=== PATIENT | female | born 1970 | race Caucasian/White ===

== ENCOUNTER → 2020-09-22 02:27 | Outpatient (CLI) | payer BC, SELFPAY ==
[2020-09-22 20:23] LABS: SARS-CoV-2 RNA PCR Negative
== END ==
PROVIDERS: PCP Nurse Practitioner; Visit Provider Internal Medicine Gastroenterology
DX: Z01.812 Encounter for preprocedural laboratory examination (principal); Z20.822 Contact with and (suspected) exposure to COVID-19
CPT/HCPCS: C9803; U0003; U0005

== ENCOUNTER 2020-09-26 00:59 | Day surgery (SDC) | payer BC, SELFPAY ==
[2020-09-26 09:36] VITALS: BP 108/56; PULSE 60; RESP 18; TEMP 37.2; O2SAT 100
--- NOTE | 2020-09-26 09:38 | PM.HPGS ---
History of Present Illness History of Present Illness Consent: Risks, benefits, and alternatives have been discussed and questions answered. Patient agrees to proceed with procedure. Chief complaint: constipation, GERD Narrative: Virginie Marie is a 49 year old female with a history of Mejia's esophagus. She also has had a change in bowel habits. Lately she has been very constipated and most of the things she has tried are not effective. Review of Systems Review of Systems: All systems reviewed & are unremarkable except as noted in HPI and below PMFSH Past Medical History Medical History GERD (gastroesophageal reflux disease) Iron deficiency anemia, unspecified Irritable bowel syndrome Major depressive disorder, recurrent, unspecified Narcolepsy and cataplexy Family History Family History Father Family history of thyroid disease Family history of hypercholesterolemia Mother Family history of mental disorder Depression Hypertension Family history of malignant neoplasm of breast in first degree relative Social History Social History Smoking status: Never smoker Alcohol intake: never Substance use type: does not use Spiritual care concerns: No Meds Home Medications and Allergies Home Medications Medication Instructions Recorded Confirmed Type armodafinil 200 mg tablet 200 mg PO QAM 02/22/20 09/26/20 History pantoprazole 20 mg tablet,delayed 40 mg PO BID 02/22/20 09/26/20 History release sennosides 8.6 mg capsule 8.6 mg PO DAILY 02/22/20 09/26/20 History sodium oxybate 500 mg/mL oral 9 gm PO BID ml 02/22/20 09/26/20 History solution famotidine 20 mg tablet 20 mg PO DAILY #90 tablet 02/24/20 09/26/20 Rx bupropion HCl 300 mg 24 hr tablet, See Rx Instructions .ROUTE 07/09/20 09/26/20 Rx extended release .COMPLEX #90 tablet calcium carbonate 400 mg calcium 400 mg PO DAILY PRN 07/30/20 09/26/20 History (1,000 mg) chewable tablet lubiprostone [Amitiza] 48 mcg PO DAILY 09/13/20 09/26/20 History pitolisant [Wakix] 35.6 mg PO DAILY 09/13/20 09/26/20 History Allergies Allergy/AdvReac Type Severity Reaction Status Date / Time No Known Allergies Allergy Verified 09/26/20 09:26 Vital Signs Vital Signs - 24 hr 09/26/20 09:36 Temperature 37.2 C Pulse Rate 60 Respiratory Rate 18 Blood Pressure 108/56 L Pulse Oximetry 100 Exam Const: General: alert Orientation/consciousness: patient oriented x3 Resp: Auscultation: clear to auscultation bilaterally Cardio: Rhythm: regular rhythm GI: GI Palp: Yes Soft to palpation and No Tenderness to palpation present (GI) Neuro: General: patient oriented x3 Assessment and Plan Assessment and plan (1) GERD (gastroesophageal reflux disease): Qualifiers: Esophagitis presence: esophagitis presence not specified Qualified Code(s): K21.9 - Gastro-esophageal reflux disease without esophagitis Code(s): K21.9 - Gastro-esophageal reflux disease without esophagitis Status: Chronic Assessment and Plan: EGD with possible biopsy or dilatation or cautery. (2) Change in bowel habits: Code(s): R19.4 - Change in bowel habit Status: Acute Assessment and Plan: Colonoscopy with possible biopsy or polypectomy or cautery or injection of substances.
[2020-09-26] MEDS: LACTATED RINGERS 1,000 ML 150 ML IV CONT (09:48)
--- NOTE | 2020-09-26 10:09 | WPDANESEPPF ---
Anes - Initial Pre Proc Eval Procedure: Operation Date: 09/26/20 10:30 Proposed Procedures p Esophagogastroduodenoscopy & Colonoscopy - Santiago Gee MD Date/Time: 09/26/20 10:09 Surgeon: Santiago Gee MD Pre Op Diagnosis: constipation, GERD Patient Data Age: 49 Gender: F Height: 5 ft 7 in Weight: 58.2 kg Last Vital Signs Temp 98.9 F 09/26/20 09:36 Pulse 60 09/26/20 09:36 Resp 18 09/26/20 09:36 BP 108/56 L 09/26/20 09:36 Pulse Ox 100 09/26/20 09:36 Allergies Allergy/AdvReac Type Severity Reaction Status Date / Time No Known Allergies Allergy Verified 09/26/20 09:26 Home Medications Medication Instructions Recorded Confirmed Type armodafinil 200 mg tablet 200 mg PO QAM 02/22/20 09/26/20 History pantoprazole 20 mg tablet,delayed 40 mg PO BID 02/22/20 09/26/20 History release sennosides 8.6 mg capsule 8.6 mg PO DAILY 02/22/20 09/26/20 History sodium oxybate 500 mg/mL oral 9 gm PO BID ml 02/22/20 09/26/20 History solution famotidine 20 mg tablet 20 mg PO DAILY #90 tablet 02/24/20 09/26/20 Rx bupropion HCl 300 mg 24 hr tablet, See Rx Instructions .ROUTE 07/09/20 09/26/20 Rx extended release .COMPLEX #90 tablet calcium carbonate 400 mg calcium 400 mg PO DAILY PRN 07/30/20 09/26/20 History (1,000 mg) chewable tablet lubiprostone [Amitiza] 48 mcg PO DAILY 09/13/20 09/26/20 History pitolisant [Wakix] 35.6 mg PO DAILY 09/13/20 09/26/20 History Patient hx anesthesia problems: none Family hx anesthesia problems: none PMFSH Past Medical History Medical History GERD (gastroesophageal reflux disease) Iron deficiency anemia, unspecified Irritable bowel syndrome Major depressive disorder, recurrent, unspecified Narcolepsy and cataplexy Family History Family History Father Family history of thyroid disease Family history of hypercholesterolemia Mother Family history of mental disorder Depression Hypertension Family history of malignant neoplasm of breast in first degree relative Social History Social History Smoking status: Never smoker Alcohol intake: never Substance use type: does not use Spiritual care concerns: No Anes - Eval Final PreProcedure Day of Procedure 09/26/20 10:09 Patient weight: normal Heart: regular rate and rhythm Lungs: clear to auscultation Airway: Mallampati scale Last oral intake: >/= 8 hours ASA classification: II Emergent: no Anesthetic plan: proceed Anesthesia type and monitoring: general GIVS and standard monitoring Informed Consent: The patient's anesthetic plan and its attendant risks and benefits were discussed with the patient/family/POA. Questions were solicited and answers provided to the satisfaction of the patient/family/POA.
[2020-09-26] MEDS: BENZOCAINE (*SP) 60 ML SPRAY CAN (HURRICAINE) 1 SPRAY MUCOUS MEM (10:22)
[2020-09-26 10:58] VITALS: BP 99/49; PULSE 66; RESP 14; O2SAT 100
[2020-09-26 11:08] VITALS: BP 102/62; PULSE 64; RESP 20; O2SAT 100
[2020-09-26 11:18] VITALS: BP 109/58; PULSE 63; RESP 16; O2SAT 100
[2020-09-26] MEDS: ACETAMINOPHEN 325 MG TABLET 650 MG PO (11:30)
--- NOTE | 2020-09-26 11:40 | SUR.PHASEII ---
Pt left eye red and tearful post-operatively. Pt states contact were not in during procedure.Dr. Alcantara anesthesia notified. New orders recieved for eye drops.
[2020-09-26] MEDS: PROPARACAINE HCL 0.5% 15 ML OPHTH SOLN 1 DROP EACH EYE (11:56)
[2020-09-26] MEDS: DICLOFENAC SODIUM 0.1% OPHTH SOLN 2.5 ML BOTTLE 1 DROP EACH EYE (12:01)
== END 2020-09-26 12:05 | disposition home or self-care (01) ==
PROVIDERS: PCP Nurse Practitioner; Visit Provider Internal Medicine Gastroenterology
PROC: 0DJ08ZZ Inspection of Upper Intestinal Tract, Via Natural or Artificial Opening Endoscopic (ICD-10-PCS; CPT 43235; principal; 2020-09-26 10:30)
DX: K59.00 Constipation, unspecified (principal); K21.9 Gastro-esophageal reflux disease without esophagitis; K44.9 Diaphragmatic hernia without obstruction or gangrene; G47.411 Narcolepsy with cataplexy; F33.9 Major depressive disorder, recurrent, unspecified; K58.9 Irritable bowel syndrome, unspecified
CPT/HCPCS: 45378; 43239; 88305; A9270; C9803; J2704; J7120; U0003; U0005

== ENCOUNTER 2021-02-02 11:38 | Emergency (ER) | payer BC, SELFPAY ==
--- NOTE | ~2021-02-02 | XR_ITS ---
XR finger 3rd RT min 2V 02/02/2021 13:08 Indication: Right third finger pain after blunt trauma Procedure: 4 views right third finger Comparison: No prior studies for comparison. Findings: There is anatomic alignment. No fracture, subluxation or dislocation. No significant soft t issue abnormality. No foreign bodies. Impression: 1: No acute bone or joint abnormality. Reviewed, dictated and finalized at location A. Impression: 1: No acute bone or joint abnormality.
[2021-02-02 11:40] VITALS: BP 109/69; PULSE 79; RESP 20; TEMP 36.8; O2SAT 98
--- NOTE | 2021-02-02 12:55 | ED.WOUNDLAC ---
HPI - Wound/Laceration General Chief Complaint: Wound/Laceration Stated Complaint: CUT R 3RD FINGER Time Seen by Provider: 02/02/21 12:36 Source: patient Mode of arrival: ambulatory Limitations: no limitations History of Present Illness HPI narrative: 50-year-old female She was getting ready to power wash and smashed her right middle fingertip in the garage door She has a distally based superficial avulsion to the pad of that finger which she thoroughly irrigated and cleaned and has been icing No numbness and she is able to flex and extend her DIP and there is no issue with the nail Related Data Home Medications Medication Instructions Recorded Confirmed armodafinil 200 mg tablet 200 mg PO QAM 02/22/20 01/31/21 pantoprazole 20 mg tablet,delayed 40 mg PO BID 02/22/20 01/31/21 release sodium oxybate 500 mg/mL oral 9 gm PO BID ml 02/22/20 01/31/21 solution calcium carbonate 400 mg calcium 400 mg PO DAILY PRN 07/30/20 01/31/21 (1,000 mg) chewable tablet Wakix 35.6 mg PO DAILY 09/13/20 01/31/21 cholecalciferol (vitamin D3) 50 50 mcg PO DAILY 01/31/21 01/31/21 mcg (2,000 unit) capsule lactobacillus combination no.4 3 3,000 mmu cells PO DAILY 01/31/21 01/31/21 billion cell capsule prucalopride 2 mg tablet 2 mg PO DAILY 01/31/21 01/31/21 Allergies Allergy/AdvReac Type Severity Reaction Status Date / Time No Known Allergies Allergy Verified 02/02/21 11:43 Review of Systems Musculoskeletal: Musculoskeletal: Reports arthralgias Neurologic: Denies focal weakness and Denies numbness PMFSH Past Medical History Medical History GERD (gastroesophageal reflux disease) Iron deficiency anemia, unspecified Irritable bowel syndrome Major depressive disorder, recurrent, unspecified Narcolepsy and cataplexy Family History Family History Father Family history of thyroid disease Family history of hypercholesterolemia Mother Family history of mental disorder Depression Hypertension Family history of malignant neoplasm of breast in first degree relative Social History Social History Smoking status: Never smoker Alcohol intake: never Substance use type: does not use Gender identity (if verbalized by the patient): Female Spiritual care concerns: No Exam Const: General: cooperative, no acute distress and alert Orientation/consciousness: patient oriented x3 (alert) HENMT: Head: normocephalic and atraumatic Eyes: Conjunctivae: conjunctivae normal EOM: EOMs intact bilaterally Neck: Neck: supple and no JVD Resp: Effort & Inspection: normal respiratory effort and not labored Auscultation: other (BS =) Skin: General skin exam: normal color and no rashes or lesions noted Neuro: General: patient oriented x3 (alert) Speech: normal speech Extrem: Other: There is a superficial proximally based avulsion to the pad of the right third finger which is well opposed and the proximal edge does not look very dusky at all at this time Mildly swollen Normal range of motion of the DIP Psych: Affect: normal affect Course Vital Signs Vital signs: Vital Signs Temperature 36.8 C 02/02/21 11:40 Pulse Rate 79 02/02/21 11:40 Respiratory Rate 20 02/02/21 11:40 Blood Pressure 109/69 02/02/21 11:40 Pulse Oximetry 98 02/02/21 11:40 Temperature 36.8 C 02/02/21 11:40 Pulse Rate 79 02/02/21 11:40 Respiratory Rate 20 02/02/21 11:40 Blood Pressure 109/69 02/02/21 11:40 Pulse Oximetry 98 02/02/21 11:40 MDM - Wound/Laceration Imaging Data Radiologist's impression: ITS Impressions Finger X-Ray 02/02/21 13:10 Impression: 1: No acute bone or joint abnormality. Discharge Plan Discharge Clinical Impression: Fingertip avulsion Patient Disposition: Home, Self-Care Condition:
[2021-02-02] MEDS: TETANUS,DIPHTHERIA,AC PERTUSSIS ADULT (0.5 ML) BOOSTRIX IM (13:06)
== END 2021-02-02 13:43 | disposition home or self-care (01) ==
PROVIDERS: Emergency Provider Emergency Medicine; PCP Nurse Practitioner
DX: S61.202A Unspecified open wound of right middle finger without damage to nail, initial encounter (principal); K21.9 Gastro-esophageal reflux disease without esophagitis; D50.9 Iron deficiency anemia, unspecified; K58.9 Irritable bowel syndrome, unspecified; Z23 Encounter for immunization; W23.0XXA Caught, crushed, jammed, or pinched between moving objects, initial encounter
CPT/HCPCS: 73140; 90471; 90715; 99283

== ENCOUNTER 2021-04-18 11:52 | Outpatient (CLI) | payer BC, SELFPAY ==
[2021-04-18 13:19] LABS: Basophils Absolute Auto 0.1 K/mm3 (0.0-0.1); Basophils Percent Auto 1.8 % (0.2-1.2); Eosinophils Percent Auto 1.4 % (0-4.4); Hematocrit 38.5 % (37.0-47.0); Hemoglobin 12.6 g/dL (12.0-15.0); Immature Granulocyte Absolute 0.01 K/mm3 (0.00-0.031); Immature Granulocyte Percent A 0.4 % (0-0.5); Lymphocytes Absolute Auto 0.93 K/mm3 (0.9-3.2); Lymphocytes Percent Auto 33.6 % (18.3-44.2); Mean Corpuscular HGB Conc 32.7 g/dl (32-36); Mean Corpuscular Hemoglobin 29.6 pg (26-34); Mean Corpuscular Volume 90.4 fl (80-100); Mean Platelet Volume 9.6 fl (7.4-10.4); Monocytes Absolute Auto 0.3 K/mm3 (0.1-0.6); Monocytes Percent Auto 10.1 % (2.6-8.5); Neutrophils Absolute Auto 1.5 K/mm3 (1.3-6.7); Neutrophils Percent Auto 52.7 % (45.5-73.1); Platelet Count Result 233 k/mm3 (150-375); Red Blood Count 4.26 M/mm3 (4.2-5.4); Red Cell Distribution Width 13.6 % (11.5-14.5); White Blood Count 2.8 K/mm3 (4.5-10.0)
[2021-04-18 13:29] LABS: Alanine Aminotransferase 37 U/L (4-35); Alkaline Phosphatase 48 U/L (38-126); Anion Gap 9 mmol/L (8-16); Aspartate Amino Transferase 31 U/L (14-36); Bilirubin,Total 0.4 mg/dL (0.2-1.3); Blood Urea Nitrogen 16 mg/dL (7-17); Calcium 9.8 mg/dL (8.4-10.2); Carbon Dioxide 33 mmol/L (22-30); Chloride 99 mmol/L (98-107); Estimated Glomerular Filt Rate > 60; Glucose 87 mg/dL (65-110); Potassium 4.5 mmol/L (3.4-5.0); Sodium 141 mmol/L (137-145)
[2021-04-18 13:32] LABS: INR 0.9; Prothrombin Time 12.2 Seconds (11.1-14.7)
[2021-04-18 13:33] LABS: Partial Thromboplastin Time 25.5 SECONDS (22.3-36.8)
== END 2021-04-18 11:53 | disposition home or self-care (01) ==
PROVIDERS: PCP Nurse Practitioner; Visit Provider Urology
DX: Z01.818 Encounter for other preprocedural examination (principal); N81.89 Other female genital prolapse
CPT/HCPCS: 36415; 80053; 85025; 85610; 85730; 86850; 86900; 86901; 87086

== ENCOUNTER 2021-04-22 00:36 | Day surgery (SDC) | payer BC, SELFPAY ==
[2021-04-18 12:33] VITALS: BP 120/74; PULSE 74; RESP 18; TEMP 37.4; O2SAT 98; BMI 19.6
--- NOTE | 2021-04-20 09:55 | PM.IMHP ---
H&P: HPI History of Present Illness Date/Time: 04/20/21 09:55 [facility] organ prolpase and MIRIAM Chief Complaint: POP/MIRIAM Review of Systems Review of Systems: All systems reviewed & are unremarkable except as noted in HPI and below [facility] Past Medical History Medical History GERD (gastroesophageal reflux disease) Iron deficiency anemia, unspecified Irritable bowel syndrome Major depressive disorder, recurrent, unspecified Narcolepsy and cataplexy Family History Family History Father Family history of thyroid disease Family history of hypercholesterolemia Mother Family history of mental disorder Depression Hypertension Family history of malignant neoplasm of breast in first degree relative Social History Social History Smoking status: Never smoker Second hand tobacco smoke exposure: No Additional smoking assessment comments: PT DENIES ALL FORMS OF TABACCO USE Alcohol intake: current Alcohol use details: STATES MAYBE 12 DRINKS A YEAR Substance use: never Substance use type: does not use Gender identity (if verbalized by the patient): Female Spiritual care concerns: No Meds Home Medications and Allergies Home Medications Medication Instructions Recorded Confirmed Type armodafinil 200 mg tablet 200 mg PO QAM 02/22/20 04/18/21 History pantoprazole 20 mg tablet,delayed 40 mg PO BID 02/22/20 04/18/21 History release calcium carbonate 400 mg calcium 400 mg PO DAILY PRN 07/30/20 04/18/21 History (1,000 mg) chewable tablet Wakix 35.6 mg PO DAILY 09/13/20 04/18/21 History lactobacillus combination no.4 3 3,000 mmu cells PO DAILY 01/31/21 04/18/21 History billion cell capsule prucalopride 2 mg tablet 2 mg PO DAILY 01/31/21 04/18/21 History bisacodyl [Dulcolax (bisacodyl)] 5 mg PO HS PRN 04/18/21 04/18/21 History bupropion HCl 300 mg QAM 04/18/21 04/18/21 History cholecalciferol (vitamin D3) 125 mcg PO DAILY 04/18/21 04/18/21 History melatonin 5 mg PO HS 04/18/21 04/18/21 History melatonin 10 mg PO HS 04/18/21 04/18/21 History nitroglycerin [Nitro-Bid] See Rx Instructions .ROUTE .COMPLEX 04/18/21 04/18/21 History polyethylene glycol 3350 [Miralax] 34 g PO DAILY 04/18/21 04/18/21 History sodium,calcium,mag,pot oxybate 4.5 g PO HS 04/18/21 04/18/21 History [Xywav] Allergies Allergy/AdvReac Type Severity Reaction Status Date / Time No Known Allergies Allergy Verified 04/18/21 12:19 Exam Const: General: cooperative and healthy appearing HENMT: Head: normal to inspection Eyes: General: appearance normal, both eyes and all related structures Resp: Effort & Inspection: normal respiratory effort and able to speak in complete sentences : Bimanual Exam- Adnexa, other: rectocele, cystocele and vaginal apex descent Back/Spine/Pelvis: Back: no CVA tenderness Skin: General skin exam: normal color Neuro: General: patient oriented x3 Assessment and Plan Assessment and plan (1) Cystocele: Status: Acute (2) Rectocele: Code(s): N81.6 - Rectocele Status: Acute (3) Uterine prolapse: Code(s): N81.4 - Uterovaginal prolapse, unspecified Status: Acute Assessment and Plan: robotic sacral colpopexy (4) MIRIAM (stress urinary incontinence, female): Code(s): N39.3 - Stress incontinence (female) (male) Status: Acute Assessment and Plan: urethral sling
[2021-04-22] VITALS (14 sets, daily range): BP systolic 118–136; BP diastolic 67–78; PULSE 57–73; RESP 13–24; TEMP 36.3–37.3; O2SAT 99–100
--- NOTE | 2021-04-22 07:24 | WPDHPUPDATE1 ---
History and Physical Update Update Date/Time: 04/22/21 07:24 History and Physical has been reviewed, including an updated exam of the patient. There are NO changes in the patient's condition. Risks, benefits, and alternatives have been discussed and questions answered. Patient agrees to proceed with procedure.
[2021-04-22] MEDS: LACTATED RINGERS 1,000 ML 30 ML IV CONT ×3 (11:00→16:47)
[2021-04-22] MEDS: ACETAMINOPHEN 500 MG TABLET 1000 MG PO (11:00)
[2021-04-22] MEDS: KETOROLAC 15 MG/ML VIAL (*BKC) IV PUSH ×3 (11:00→17:07)
--- NOTE | 2021-04-22 11:34 | WPDANESEPPF ---
Anes - Initial Pre Proc Eval Procedure: Operation Date: 04/22/21 12:00 Proposed Procedures p Robotic Sacrocolpopexy - Porfirio Shankar MD s Urethral Sling - Porfirio Shankar MD s Robotic Assisted Laparoscopic Supracervical Hysterectomy - Mich Humphrey MD Date/Time: 04/22/21 11:34 Surgeon: Porfirio Shankar MD Pre Op Diagnosis: stress incontinence, cystocele and rectocele Patient Data Age: 50 Gender: F Height: 1.73 m Weight: 58.7 kg Last Vital Signs Temp 37.4 C 04/18/21 12:33 Pulse 74 04/18/21 12:33 Resp 18 04/18/21 12:33 BP 120/74 04/18/21 12:33 Pulse Ox 98 04/18/21 12:33 Allergies Allergy/AdvReac Type Severity Reaction Status Date / Time No Known Allergies Allergy Verified 04/18/21 12:19 Home Medications Medication Instructions Recorded Confirmed Type armodafinil 200 mg tablet 200 mg PO QAM 02/22/20 04/18/21 History pantoprazole 20 mg tablet,delayed 40 mg PO BID 02/22/20 04/18/21 History release calcium carbonate 400 mg calcium 400 mg PO DAILY PRN 07/30/20 04/18/21 History (1,000 mg) chewable tablet Wakix 35.6 mg PO DAILY 09/13/20 04/18/21 History lactobacillus combination no.4 3 3,000 mmu cells PO DAILY 01/31/21 04/18/21 History billion cell capsule prucalopride 2 mg tablet 2 mg PO DAILY 01/31/21 04/18/21 History bisacodyl [Dulcolax (bisacodyl)] 5 mg PO HS PRN 04/18/21 04/18/21 History bupropion HCl 300 mg QAM 04/18/21 04/18/21 History cholecalciferol (vitamin D3) 125 mcg PO DAILY 04/18/21 04/18/21 History melatonin 5 mg PO HS 04/18/21 04/18/21 History melatonin 10 mg PO HS 04/18/21 04/18/21 History nitroglycerin [Nitro-Bid] See Rx Instructions .ROUTE .COMPLEX 04/18/21 04/18/21 History polyethylene glycol 3350 [Miralax] 34 g PO DAILY 04/18/21 04/18/21 History sodium,calcium,mag,pot oxybate 4.5 g PO HS 04/18/21 04/18/21 History [Xywav] Patient hx anesthesia problems: none Family hx anesthesia problems: none Results Review: All pre-operative results and documents have been reviewed as part of the pre-operative evaluation. [facility] Past Medical History Medical History (Updated 04/22/21 @ 07:08 by Tanner Vera DO) GERD (gastroesophageal reflux disease) Iron deficiency anemia, unspecified Irritable bowel syndrome Major depressive disorder, recurrent, unspecified Narcolepsy and cataplexy MOSES (obstructive sleep apnea) mouth piece Family History Family History Father Family history of thyroid disease Family history of hypercholesterolemia Mother Family history of mental disorder Depression Hypertension Family history of malignant neoplasm of breast in first degree relative Social History Social History Smoking status: Never smoker Second hand tobacco smoke exposure: No Additional smoking assessment comments: PT DENIES ALL FORMS OF TABACCO USE Alcohol intake: current Alcohol use details: STATES MAYBE 12 DRINKS A YEAR Substance use: never Substance use type: does not use Living arrangements: with family Gender identity (if verbalized by the patient): Female Spiritual care concerns: No Anes - Eval Final PreProcedure Day of Procedure 04/22/21 11:34 Patient weight: thin Heart: regular rate and rhythm Lungs: clear to auscultation and normal air movement Airway: Mallampati scale class II Neurological: alert and oriented Last oral intake: >/= 8 hours ASA classification: III Emergent: no Anesthetic plan: proceed Anesthesia type and monitoring: general ETT and standard monitoring Results Review: All pre-operative results and documents have been reviewed as part of the pre-operative evaluation. Informed Consent: The patient's anesthetic plan and its attendant risks and benefits were discussed with the patient/family/POA. Questions were solicited and answers provided to the satisfaction of the patient/family/
--- NOTE | 2021-04-22 11:34 | PM.IMHP ---
H&P: HPI History of Present Illness Date/Time: 04/22/21 11:34 50-year-old female presents for multiple procedures for urine incontinence and pelvic pressure. She has had a longstanding no increasing problem with pelvic pressure fullness leaking rectal pressure. She has seen Dr. khalil will also be proceeding with interventions for those other problems. The uterine prolapse will be taking care of with supracervical hysterectomy. Chief Complaint: Urinary continence Review of Systems Review of Systems: All systems reviewed & are unremarkable except as noted in HPI and below PMFSH Past Medical History Medical History GERD (gastroesophageal reflux disease) Iron deficiency anemia, unspecified Irritable bowel syndrome Major depressive disorder, recurrent, unspecified Narcolepsy and cataplexy MOSES (obstructive sleep apnea) mouth piece Family History Family History Father Family history of thyroid disease Family history of hypercholesterolemia Mother Family history of mental disorder Depression Hypertension Family history of malignant neoplasm of breast in first degree relative Social History Social History Smoking status: Never smoker Second hand tobacco smoke exposure: No Additional smoking assessment comments: PT DENIES ALL FORMS OF TABACCO USE Alcohol intake: current Alcohol use details: STATES MAYBE 12 DRINKS A YEAR Substance use: never Substance use type: does not use Living arrangements: with family Gender identity (if verbalized by the patient): Female Spiritual care concerns: No Meds Home Medications and Allergies Home Medications Medication Instructions Recorded Confirmed Type armodafinil 200 mg tablet 200 mg PO QAM 02/22/20 04/18/21 History pantoprazole 20 mg tablet,delayed 40 mg PO BID 02/22/20 04/18/21 History release calcium carbonate 400 mg calcium 400 mg PO DAILY PRN 07/30/20 04/18/21 History (1,000 mg) chewable tablet Wakix 35.6 mg PO DAILY 09/13/20 04/18/21 History lactobacillus combination no.4 3 3,000 mmu cells PO DAILY 01/31/21 04/18/21 History billion cell capsule prucalopride 2 mg tablet 2 mg PO DAILY 01/31/21 04/18/21 History bisacodyl [Dulcolax (bisacodyl)] 5 mg PO HS PRN 04/18/21 04/18/21 History bupropion HCl 300 mg QAM 04/18/21 04/18/21 History cholecalciferol (vitamin D3) 125 mcg PO DAILY 04/18/21 04/18/21 History melatonin 5 mg PO HS 04/18/21 04/18/21 History melatonin 10 mg PO HS 04/18/21 04/18/21 History nitroglycerin [Nitro-Bid] See Rx Instructions .ROUTE .COMPLEX 04/18/21 04/18/21 History polyethylene glycol 3350 [Miralax] 34 g PO DAILY 04/18/21 04/18/21 History sodium,calcium,mag,pot oxybate 4.5 g PO HS 04/18/21 04/18/21 History [Xywav] Allergies Allergy/AdvReac Type Severity Reaction Status Date / Time No Known Allergies Allergy Verified 04/18/21 12:19 Exam Const: General: cooperative and healthy appearing Resp: Auscultation: clear to auscultation bilaterally Cardio: Rate: regular rate Rhythm: regular rhythm GI: Percussion: Yes normal to percussion Auscultation: normal bowel sounds : Speculum Exam - Cervix: normal appearance of the cervix Bimanual exam- vagina & uterus: normal bimanual exam ( With cystocele rectocele and uterine prolapse noted) Assessment and Plan Assessment and plan (1) Uterine prolapse: Code(s): N81.4 - Uterovaginal prolapse, unspecified Status: Acute Additional Plan supracervical hysterectomy laparoscopic.
--- NOTE | 2021-04-22 11:36 | WPDHPUPDATE1 ---
History and Physical Update Update Date/Time: 04/22/21 11:36 History and Physical has been reviewed, including an updated exam of the patient. There are NO changes in the patient's condition. Risks, benefits, and alternatives have been discussed and questions answered. Patient agrees to proceed with procedure.
[2021-04-22] MEDS: ceFAZolin 2 GM/D5W 50 ML 2 GM/50 ML BAG IVPB (12:19)
[2021-04-22] MEDS: metroNIDAZOLE 500 MG/ISO 100ML 500 MG/100 ML BAG 100 MG IVPB (12:40)
--- NOTE | 2021-04-22 13:26 | PM.OP ---
Procedure Note - Brief Procedure Note - Brief Date of procedure: 04/22/21 Pre-op diagnosis: stress incontinence, cystocele and rectocele Uterine prolapse Post-op diagnosis: same Procedure performed: Laparoscopic supracervical hysterectomy Description of procedure: Patient prepped in usual manner for this procedure and. Dr. Shankar placed trocars. Surgeon moved to the console findings were noted as above and round ligaments were cauterized and cut bladder flap developed. Posteriorly probably was then assessed. Utero-ovarian ligament was cauterized and cut and the uterine vessels with this point were skeletonized. Once they were cauterized and cut the cervix was amputated from the uterus without difficulty. This point Dr. Shankar returned the room too can continue with the case. Anesthesia: GLMA Surgeon: Mich Humphrey MD Estimated blood loss (mL): 25 Drains: No Packing: No Pathology: yes Complications: No immediate complications Condition: stable Disposition: PACU Findings: Mildly enlarged uterus with normal tubes and ovaries. Pelvic exam reveals uterine prolapse to the antritis as well as bladder and rectum relaxing as well.
[2021-04-22] MEDS: LIDO 1%/EPINEPHRINE 1:100,000 50 ML VIAL INFILTRATE (15:15)
--- NOTE | 2021-04-22 15:37 | W.PM.PROC2 ---
Procedure Note - Detailed Date of Procedure 04/22/21 Pre-op Diagnosis Uterine prolapse, stress incontinence Post-op Diagnosis same Procedure Performed Robotic assisted laparoscopic sacral colpopexy Urethral sling Cystoscopy Surgeon Porfirio Shankar MD Anesthesia general Indications Distal with uterine prolapse as well as stress incontinence. She desires surgical correction. She is here for the above. She understands risks of bleeding, infection, diskitis, damage to surrounding organs, bowel injury, bowel obstruction, mesh related complications including exposure and extrusion, postoperative voiding dysfunction including incontinence and retention, need for ancillary procedures, dyspareunia, recurrence of prolapse, and other perioperative intraoperative postoperative complications. She agrees to proceed. Findings See below Description of Procedure She was correctly identified. Informed consent obtained. She from the operating room. She was given general anesthesia. She was given appropriate perioperative antibiotics. She was placed a low lithotomy position. Pressure points were padded. A time-out performed. I marked out the skin 3 fingerbreadths cephalad to the umbilicus. I anesthetized the skin. I incised the skin. I dissected down to the fascia. I grasped the fascia with Magi clamps. I entered the fascia sharply in a Lazo type technique. I placed sutures for later fascial closure. I placed a midline trocar. I examined the abdomen. There is no sign of any injury. Under direct vision I placed 2 additional trocars in the right upper quadrant and 2 additional trocars the left upper quadrant. She was placed in steep Trendelenburg. The robot was docked. Her client services manager completed their portion of the procedure. Please see that operative report for details. I then sat at the console. The Sizer in the vagina created plane on the anterior and posterior vaginal wall. I took great care not to injure the vagina, bladder, or rectum. I introduced the mesh into the abdomen. I sewed the anterior leaflet of mesh on the anterior vaginal wall. I sewed the posterior leaflet of mesh on the posterior vaginal wall. This was done with several sutures of 2 0 Kincaid-Negro. I reflected the colon laterally. I opened the posterior peritoneum over the sacral promontory. I carried this into the cul-de-sac. I freed up the edges for later retroperitonealization. I located the anterior longitudinal ligament the sacrum. I cleaned off all fatty tissues. I then tensioned my mesh appropriately. I did a vaginal exam the bedside. I assured prolapse reduction without undue tension. I then sewed the proximal leaflet of mesh onto the anterior longitudinal ligament of the sacrum with several sutures of 2 0 Kincaid-Negro. I then used a 2 0 Monocryl to completely and meticulously retroperitonealized all mesh. I allowed the colon to go back to its normal anatomic location. There is no sign of any impingement. The specimen was then removed. All ports removed. Fascia was tied down. I actually close the fascia at all port sites due to her thinness to avoid any risk of hernia. The Skin was closed with Monocryl and surgical glue. She was repositioned and prepped for urethral sling. I marked out the inner thigh incisions. I anesthetized the skin and made the incisions. I then anesthetized the anterior vaginal wall at the mid urethra. I made a 1 cm incision. I dissected out laterally taking great care not to injure the refilled vaginal wall. I passed the helical trocars. I did this 1st on the left and then on the right. This was done from the thigh incision towards the vaginal incision. Sling was connected to the trocars and brought out the thigh incision. I tensioned the sling appropriately. I cut and the plastic sheaths. I closed the incision with 2 0 Vicryl. I examined the sulcus is bilaterally and there was no signs of any mesh exposure. There was a small
[2021-04-22] MEDS: fentaNYL CITRATE INJ (*CRX) 100 MCG/2 ML VIAL 25 MCG IV PUSH ×8 (15:51→16:31)
[2021-04-22] MEDS: HYDROmorphone HCL INJ (*CRX) 1 MG/ML SYR 0.5 MG IV PUSH ×2 (17:06→17:44)
--- NOTE | 2021-04-22 19:02 | SUR.PHASEII ---
BLADDER SCAN OF 445ML.
[2021-04-22] MEDS: oxyCODONE HCL (*CRX) 5 MG TAB IR PO (19:42)
--- NOTE | 2021-04-22 19:43 | SUR.PHASEII ---
PT UNABLE TO VOID. DR DICKERSON ORDERED A MAX. PT DISCHARGED HOME WITH MANSOOR AND DR DICKERSON TO CALL TOMORROW AND SET UP APPOINTMENT FOR THURSDAY TO GET MAX OUT.
== END 2021-04-22 19:46 | disposition home or self-care (01) ==
PROVIDERS: Obstetrics & Gynecology; PCP Nurse Practitioner; Visit Provider Urology
PROC: (CPT 57425; principal; 2021-04-22 12:00)
PROC: (CPT 57425; 2021-04-22 12:00)
PROC: (CPT 58541; 2021-04-22 12:00)
DX: N39.3 Stress incontinence (female) (male) (principal); N81.4 Uterovaginal prolapse, unspecified; N81.6 Rectocele; N80.0 Endometriosis of uterus; N73.6 Female pelvic peritoneal adhesions (postinfective); K21.9 Gastro-esophageal reflux disease without esophagitis; D51.9 Vitamin B12 deficiency anemia, unspecified; K58.9 Irritable bowel syndrome, unspecified; G47.33 Obstructive sleep apnea (adult) (pediatric); G47.411 Narcolepsy with cataplexy
CPT/HCPCS: 57425; 57288; 58541; S2900 ×2; 36415; 80053; 85025; 85610; 85730; 86850; 86900; 86901; 87086; 88307; A9270; C1771; C1781; C9290; J0690; J1100; J1170; J1885; J2250; J2405; J2704; J2710; J3010; J7030; J7120